=== PATIENT | male | born 1965 | race Caucasian/White ===

== ENCOUNTER 2020-10-28 05:11 | Emergency (ER) | payer OTHER ==
[~2020-10-28 05:11] MED LIST: ASPIRIN81 MG PO; NITROGLYCERIN0.4 MG SL
[2020-10-28] MEDS ORDERED: IBUPROFEN800 MG PO (05:58)
== END 2020-10-28 06:09 | disposition home or self-care (01) ==
LOC: ER1 05:11
DX: S52.501A Unspecified fracture of the lower end of right radius, initial encounter for closed fracture (principal); F17.200 Nicotine dependence, unspecified, uncomplicated; W10.1XXA Fall (on)(from) sidewalk curb, initial encounter; Y92.89 Other specified places as the place of occurrence of the external cause; Y99.0 Civilian activity done for income or pay
CPT/HCPCS: 29125; 73090; 73130; 99283

== ENCOUNTER 2021-01-02 18:21 | Emergency (ER) | payer OTHER ==
[~2021-01-02 18:21] MED LIST changes: +IBUPROFEN800 MG PO
== END 2021-01-02 22:44 | disposition home or self-care (01) ==
LOC: ER1 18:21
DX: M25.531 Pain in right wrist (principal); I25.10 Atherosclerotic heart disease of native coronary artery without angina pectoris; Z79.899 Other long term (current) drug therapy
CPT/HCPCS: 29125; 73110; 99283